=== PATIENT | male | born 1975 | race Caucasian/White ===

== ENCOUNTER 2023-12-16 22:58 | Emergency (ER) | payer MEDICAID ==
[~2023-12-16] VITALS: Ht 167.6 cm; Wt 97.5 kg
[~2023-12-16 22:58] MED LIST: METF-346 PO
[2023-12-16 23:14] VITALS: BP 124/73; PULSE 80; RESP 16; TEMP 97.4; O2SAT 98
[2023-12-16 23:24] VITALS: BP 124/71; PULSE 90; RESP 16; O2SAT 99
[2023-12-16] MEDS: LIDOCAINE MPF 1% 10 MG/ML VIAL INJ ONE (23:43)
[2023-12-16] MEDS: ceFAZolin 1,000 MG VIAL IM ONE (23:44)
[2023-12-17] MEDS ORDERED: CEPH-588 PO (00:14)
[2023-12-17] MEDS ORDERED: ONDA-188 SL (06:36)
== END 2023-12-17 00:50 | disposition home or self-care (01) ==
LOC: MED 22:58
DX: L03.115 Cellulitis of right lower limb (principal); E11.9 Type 2 diabetes mellitus without complications; Z79.899 Other long term (current) drug therapy; Z88.0 Allergy status to penicillin
CPT/HCPCS: 96372; 99283; J0690; J2001

== ENCOUNTER 2023-12-17 06:34 | Emergency (ER) | payer MEDICAID ==
[~2023-12-17] VITALS: Ht 167.6 cm; Wt 97.5 kg
[~2023-12-17 06:34] MED LIST changes: +CEPH-588 PO
[2023-12-17 06:35] VITALS: BP 119/78; PULSE 80; RESP 18; TEMP 98; O2SAT 98
[2023-12-17] MEDS ORDERED: ONDA-188 SL (06:36)
[2023-12-17] MEDS: ONDANSETRON 4 MG ODT PO ONE (06:53)
== END 2023-12-17 06:53 | disposition home or self-care (01) ==
LOC: MED 06:34
DX: Z00.00 Encounter for general adult medical examination without abnormal findings (principal); E11.9 Type 2 diabetes mellitus without complications; Z79.899 Other long term (current) drug therapy; Z88.0 Allergy status to penicillin
CPT/HCPCS: 99283; Q0162

== ENCOUNTER 2024-03-19 18:28 | Emergency (ER) | payer MEDICAID ==
[~2024-03-19] VITALS: Ht 167.6 cm; Wt 86.2 kg
[~2024-03-19 18:28] MED LIST changes: +ONDA-188 SL
[2024-03-19 19:08] VITALS: BP 148/92; PULSE 110; RESP 18; TEMP 98.1; O2SAT 96
[2024-03-19 19:30] VITALS: BP 95/69; PULSE 130; RESP 22; TEMP 99; O2SAT 96
[2024-03-19] MEDS: LORazepam 2 MG/ML VIAL IM ONE (21:40)
[2024-03-20] MEDS ORDERED: FURO-572 PO (01:10)
== END 2024-03-19 21:40 | disposition left against medical advice (07) ==
LOC: MED 18:28
DX: F19.10 Other psychoactive substance abuse, uncomplicated (principal); M25.571 Pain in right ankle and joints of right foot; E11.9 Type 2 diabetes mellitus without complications; Z79.84 Long term (current) use of oral hypoglycemic drugs; Z79.2 Long term (current) use of antibiotics; Z79.1 Long term (current) use of non-steroidal anti-inflammatories (NSAID); Z79.899 Other long term (current) drug therapy
CPT/HCPCS: 99283; J2060

== ENCOUNTER 2024-03-19 22:44 | Emergency (ER) | payer MEDICAID ==
[~2024-03-19] VITALS: Ht 167.6 cm; Wt 81.6 kg
[2024-03-19] MEDS: ZIPRASIDONE MESYLATE 20 MG/ML VIAL IM ONE (23:31)
[2024-03-20 00:49] VITALS: BP 118/72; PULSE 103; RESP 16; O2SAT 99
[2024-03-20] MEDS ORDERED: FURO-572 PO (01:10)
[2024-03-20 05:27] VITALS: TEMP 97.9
== END 2024-03-20 05:27 | disposition home or self-care (01) ==
LOC: MED 22:44
DX: L08.9 Local infection of the skin and subcutaneous tissue, unspecified (principal); R60.0 Localized edema; R45.1 Restlessness and agitation; F17.200 Nicotine dependence, unspecified, uncomplicated; E11.9 Type 2 diabetes mellitus without complications; Z98.890 Other specified postprocedural states; Z79.1 Long term (current) use of non-steroidal anti-inflammatories (NSAID); Z79.2 Long term (current) use of antibiotics; Z79.84 Long term (current) use of oral hypoglycemic drugs; Z88.0 Allergy status to penicillin
CPT/HCPCS: 96372; 99283; J3486

== ENCOUNTER 2024-04-23 21:23 | Emergency (ER) | payer MEDICAID ==
[~2024-04-23] VITALS: Ht 172.7 cm; Wt 83.0 kg
[~2024-04-23 21:23] MED LIST changes: +FURO-572 PO
[2024-04-23 21:25] VITALS: BP 143/82; PULSE 84; RESP 16; O2SAT 96
[2024-04-23 22:27] LABS: BASOPHILS # (AUTO) 0.1 K/uL (0.00-0.22); BASOPHILS % (AUTO) 1.7 % (0.0-2.0); EOSINOPHILS # (AUTO) 0.3 K/uL (0-0.4); EOSINOPHILS % (AUTO) 3.4 % (0.0-4.0); HEMATOCRIT 36.8 % (36-52); HEMOGLOBIN 12.2 g/dL (12.0-18.0); LYMPHOCYTES # (AUTO) 2.1 K/uL (2.0-11.5); MEAN CORPUSCULAR HEMOGLOBIN 29 pg (27-31); MEAN CORPUSCULAR HGB CONC 33 g/dL (33-37); MEAN CORPUSCULAR VOLUME 87.1 fL (80-94); MONOCYTES # (AUTO) 0.8 K/uL (0.8-1.0); MONOCYTES % (AUTO) 9.6 % (1.7-9.3); NEUTROPHILS # (AUTO) 4.7 K/uL (1.8-7.7); NEUTROPHILS % (AUTO) 59.3 % (42.2-75.2); PLATELET COUNT (AUTO) 344 K/uL (140-450); RED BLOOD CELL COUNT(AUTO) 4.23 MIL/uL (4.20-6.10); RED CELL DISTRIBUTION WIDTH 17.4 % (11.6-13.7)
[2024-04-23 22:41] LABS: INR 1.1 (0.8-1.2); PARTIAL THROMBOPLASTIN TIME 21.3 secs (22-35.6); PROTHROMBIN TIME 11.4 secs (10.8-13.4)
[2024-04-23 22:44] LABS: ALBUMIN 3.6 g/dL (3.4-5.0); ANION GAP 14.8 (8-16); CALCIUM 9.4 mg/dL (8.5-10.1); CARBON DIOXIDE 28.6 mmol/L (21-32); POTASSIUM 3.4 mmol/L (3.5-5.1); TOTAL BILIRUBIN 0.6 mg/dL (0.0-1.0); TOTAL PROTEIN, SERUM 7.6 g/dL (6.4-8.2)
[2024-04-24] MEDS: IBUPROFEN 800 MG TAB PO ONE (00:10)
[2024-04-24 02:36] VITALS: BP 112/71; PULSE 62; RESP 16; O2SAT 100
== END 2024-04-24 02:36 | disposition home or self-care (01) ==
LOC: MED 21:23
DX: M79.604 Pain in right leg (principal); F15.90 Other stimulant use, unspecified, uncomplicated; E11.9 Type 2 diabetes mellitus without complications; Z79.899 Other long term (current) drug therapy; Z88.0 Allergy status to penicillin
CPT/HCPCS: 36415; 80053; 85025; 85379; 85610; 85730; 99283